=== PATIENT | male | born 1980 | race Two or more races ===

== ENCOUNTER 2018-03-21 12:47 | Emergency (ER) | payer OTHER ==
[~2018-03-21] VITALS: Ht 172.7 cm; Wt 68.0 kg
[2018-03-21] MEDS ORDERED: ONDANSETRON HCL 4 MG/2 ML VIAL IV ONE (13:30)
[2018-03-21] MEDS ORDERED: ceFAZolin 1GM/50ML 100 ML IV ONE (13:30)
[2018-03-21] MEDS ORDERED: TETANUS-DIPTH-ACEL PERTUSSIS 0.5ML SYRG IM ONE (13:30)
[2018-03-21] MEDS ORDERED: MORPHINE SULFATE 4 MG/ML SYR/VIAL IV ONE (13:30)
[2018-03-21] MEDS ORDERED: LIDOCAINE 1% (LOCAL ANESTH.) PF 5ml SDV ID ONE (15:15)
[2018-03-21] MEDS ORDERED: PHENYLEPHRINE HCL 0.25 % NASAL SPRAY 15ML ONE (15:15)
[2018-03-21] MEDS ORDERED: NEOMYCIN-BACITRACIN-POLYM UNITDOSE PKG TOP OINT TOP ONE (15:15)
[2018-03-21] MEDS ORDERED: PHENYLEPHRINE HCL 1 % NASAL SPRAY 15ML ONE (15:15)
[2018-03-21] MEDS ORDERED: ACETAMINOPHEN/CODEINE#3 (300/30mg) TAB PO ONE (16:45)
[2018-03-21 16:48] VITALS: BP 127/83
== END 2018-03-21 16:57 ==
LOC: ER 12:47 → EEVIPCON 12:47 → ER 16:56
DX: S02.2XXA Fracture of nasal bones, initial encounter for closed fracture (principal); S01.21XA Laceration without foreign body of nose, initial encounter; Y08.89XA Assault by other specified means, initial encounter; Y93.89 Activity, other specified; Y99.8 Other external cause status; Y92.148 Other place in prison as the place of occurrence of the external cause
CPT/HCPCS: 12011; 70450; 70486; 90471; 90715; 96365; 96366; 96375; 99284; J0690; J2270; J2405; J7030; 12013